=== PATIENT | male | born 1995 | race Caucasian/White ===

== ENCOUNTER → 2020-07-30 | Emergency (ER) | payer OTHER ==
[~2020-07-30] VITALS: Ht 182.9 cm; Wt 90.7 kg
[~2020-07-30] MED LIST: ATENOLOL 25 MG25 M1 PO; PREDNISONE 20 M20 MG PO; VENTOLIN HFA 1818 GM INH; ZPAK PO
[2020-07-30 16:36] LABS: INFLUENZA A ANTIGEN Negative (Negative); INFLUENZA B ANTIGEN Negative (Negative)
[2020-07-30 17:15] VITALS: BP 119/97
== END ==
LOC: M.ERS 15:52
PROVIDERS: Nurse Practitioner Family
DX: U07.1 COVID-19 (principal); Z79.899 Other long term (current) drug therapy